=== PATIENT | female | born 1950 | race Asian ===

== ENCOUNTER 2017-01-12 09:36 | Outpatient (CLI) | payer OTHER ==
[~2017-01-12 09:36] MED LIST: FEXOFENADINE H180 MG PO; FLUTICASONE50 MCG; LOSA50TA PO; PROAIR HFA IN; SINGULAIR10 MG PO; TRIA37.541 PO
[2017-01-12 10:30] LABS: PLATELET COUNT 273 K/uL (152-353)
[2017-01-12 10:49] LABS: POTASSIUM 3.5 mmol/L (3.6-5.2); SODIUM 139 mmol/L (136-145)
== END 2017-01-12 19:30 | disposition home or self-care (01) ==
LOC: LABW 09:36
PROVIDERS: Internal Medicine
DX: I10 Essential (primary) hypertension (principal); R82.99 Other abnormal findings in urine
CPT/HCPCS: 36415; 80053; 80061; 81000; 84443; 85027; 87086; 87088

== ENCOUNTER 2017-08-30 11:35 | Outpatient (CLI) | payer OTHER | END 2017-08-30 13:00 | disposition home or self-care (01) | LOC: RAD 11:35 → RESP 09-03 13:00 | DX: R06.02 Shortness of breath (principal) | CPT/HCPCS: 94640; 94664 ==

== ENCOUNTER 2017-12-24 08:49 | Outpatient (CLI) | payer OTHER ==
[2017-12-24 09:36] LABS: PLATELET COUNT 250 K/uL (152-353)
[2017-12-24 10:39] LABS: POTASSIUM 3.3 mmol/L (3.6-5.2)
== END 2017-12-24 20:22 | disposition home or self-care (01) ==
LOC: LABW 08:49
PROVIDERS: Internal Medicine
DX: I10 Essential (primary) hypertension (principal)
CPT/HCPCS: 36415; 80053; 80061; 84443; 85027

== ENCOUNTER 2018-08-07 14:20 | Outpatient (CLI) | payer OTHER | END 2018-08-07 19:43 | disposition home or self-care (01) | LOC: RAD 14:20 | DX: J45.909 Unspecified asthma, uncomplicated (principal) ==

== ENCOUNTER 2018-12-25 11:52 | Outpatient (CLI) | payer OTHER ==
[~2018-12-25 11:52] MED LIST changes: +ASA LOW DOSE81 MG PO; +CARDIZEM60 M1 PO; +CARV3.12 PO; +DYRENIUM50 MG PO; +LIPITOR40 MG PO; +XARELTO10 MG PO
[2018-12-25 12:37] LABS: PLATELET COUNT 301 K/uL (152-353)
[2018-12-25 12:50] LABS: POTASSIUM 3.3 mmol/L (3.6-5.2)
== END 2018-12-25 19:21 | disposition home or self-care (01) ==
LOC: LABW 11:52
PROVIDERS: Internal Medicine
DX: Z00.00 Encounter for general adult medical examination without abnormal findings (principal); I10 Essential (primary) hypertension; E55.9 Vitamin D deficiency, unspecified
CPT/HCPCS: 36415; 80053; 80061; 81000; 82306; 84439; 84443; 85027

== ENCOUNTER 2019-01-02 10:41 | Outpatient (CLI) | payer OTHER | END 2019-01-02 20:34 | disposition home or self-care (01) | LOC: RAD 10:41 | DX: Z13.820 Encounter for screening for osteoporosis (principal); Z78.0 Asymptomatic menopausal state ==

== ENCOUNTER 2020-11-29 18:41 | Outpatient (CLI) | payer OTHER | END 2020-11-29 20:54 | disposition home or self-care (01) | LOC: LAB 18:41 | PROVIDERS: ATTEND Internal Medicine | DX: N39.0 Urinary tract infection, site not specified (principal) | CPT/HCPCS: 87077; 87086; 87088; 87186 ==

== ENCOUNTER 2021-03-30 11:05 | Outpatient (CLI) | payer OTHER | END 2021-03-30 21:02 | disposition home or self-care (01) | LOC: MRI 11:05 | PROVIDERS: ATTEND Internal Medicine | DX: M47.16 Other spondylosis with myelopathy, lumbar region (principal) ==

== ENCOUNTER 2021-05-09 10:59 | Outpatient (CLI) | payer OTHER | END 2021-05-09 14:00 | disposition home or self-care (01) | LOC: US 10:59 | PROVIDERS: ATTEND Internal Medicine | DX: J45.21 Mild intermittent asthma with (acute) exacerbation (principal); M79.89 Other specified soft tissue disorders ==

== ENCOUNTER 2023-03-29 14:29 | Outpatient (CLI) | payer OTHER | END 2023-03-29 17:00 | disposition home or self-care (01) | LOC: US 14:29 | PROVIDERS: ATTEND Nurse Practitioner Family | DX: R06.02 Shortness of breath (principal); M79.605 Pain in left leg; M79.89 Other specified soft tissue disorders | CPT/HCPCS: 36415; 83880; 85379 ==